=== PATIENT | male | born 1960 | race Caucasian/White ===

== ENCOUNTER 2020-03-19 07:39 | Outpatient (CLI) | payer OTHER ==
[2020-03-19 11:41] LABS: Bacteria/HPF None Seen HPF (None Seen); Bilirubin Negative (Negative); Blood, Urine Trace (Negative); Clarity Clear (Clear); Glucose, Urine (Dipstick) Normal (Negative); Leukocyte Negative Leu/uL (Negative); Nitrite Negative (Negative); Protein, Urine (Dipstick) Negative (Neg-Trace); RBC/HPF 0-3 HPF (0-3); Squamous Epithelial 0-3 HPF (0-3); Urobilinogen Normal mg/dL (Less than 2); WBC/HPF 0-3 HPF (0-3)
[2020-03-19 11:44] LABS: #Basophils 0.1 thou/uL (0.0-0.2); #Eosinphils 0.1 thou/uL (0.0-0.7); #Lymphocytes 2.2 thou/uL (1.20-3.40); #Monocytes 0.8 thou/uL (0.11-0.59); #Neutrophils 7.5 thou/uL (1.40-6.50); %Basophils 0.9 % (0.0-1.0); %Eosinophils 0.9 % (0.0-10.0); %Lymphocytes 20.4 % (21.0-51.0); %Monocytes 7.2 % (0.0-10.0); %Neutrophils 70.6 % (42.0-75.0); Hemoglobin 17.4 g/dL (14.0-18.0); Mean Corpuscular HGB CONC 33.2 g/dL (32.0-36.0); Mean Corpuscular Hemoglobin 29.7 pg (27.0-31.0); Mean Corpuscular Volume 89.4 fL (78.0-98.0); Platelet Count 224 thou/uL (130-400); RBC Distribution Width 12.6 % (11.5-14.5); Red Blood Cell (RBC) Count 5.87 mill/uL (4.70-6.10); White Blood Cell (WBC) Count 10.7 thou/uL (4.8-10.8)
[2020-03-19 18:47] LABS: SARS-CoV-2 MS2 Positive; SARS-CoV-2 N Gene Negative; SARS-CoV-2 S Gene Negative; SARS-CoV-2 orf1ab Negative
== END 2020-03-19 07:40 | disposition home or self-care (01) ==
LOC: LABBT 07:39
PROVIDERS: ATTEND Orthopaedic Surgery
DX: Z01.812 Encounter for preprocedural laboratory examination (principal); Z11.59 Encounter for screening for other viral diseases; G56.01 Carpal tunnel syndrome, right upper limb
CPT/HCPCS: 81001; 85025; 87635; U0003

== ENCOUNTER 2020-03-22 07:06 | Day surgery (SDC) | payer OTHER ==
[2020-03-19 10:52] VITALS: BMI 32.3
[2020-03-22] MEDS ORDERED: Clindamycin/D5W 600 mg/50 ml Premix Bag ONE (07:27)
[2020-03-22] MEDS ORDERED: Ketamine 50 MG/ML (10ML VIAL) ONE (10:15)
[2020-03-22] MEDS ORDERED: Midazolam HCl 2 mg/2 ml Vial ONE (10:15)
[2020-03-22] MEDS ORDERED: Propofol 500 MG/50 ML VIAL ONE (10:15)
[2020-03-22] MEDS ORDERED: Fentanyl 100 MCG/2 ML VIAL ONE (10:15)
[2020-03-22] MEDS ORDERED: Lidocaine 1% w/Epinephrine 1:100K 20 ML VIAL ONE (10:20)
--- NOTE | 2020-03-22 12:27 | OP ---
DATE OF PROCEDURE: 03/22/2020 PREOPERATIVE DIAGNOSIS: Right carpal tunnel syndrome. POSTOPERATIVE DIAGNOSIS: Right carpal tunnel syndrome. PROCEDURE PERFORMED: Right open carpal tunnel release. CASE SPECIALIST: None. ANESTHESIA: Dr. Way. The patient received TIVA 6 mL 1% with epi. ESTIMATED BLOOD LOSS: Less than 10 mL. TOURNIQUET TIME: 7 minutes at 250 mmHg. ANTIBIOTICS: Clindamycin 600. COMPLICATIONS: None. 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 The patient has history of nerve conduction studies being positive, decreased sensation in his median distribution, got pain at night, failed conservative measures and elected for release. I discussed the risks and benefits of release including pain, scar, bleeding, infection, damage to vital structures including nerve, continued pain, need for further surgeries, anesthetic complications, loss of life or limb. The patient understood the risks and benefits and elected to proceed. DESCRIPTION OF PROCEDURE: Time-out was performed designating the patient's right upper extremity as the operative site based on site, consents, and marking. After time-out, the patient's right upper extremity was prepped and draped in a sterile fashion. Tourniquet was brought up and was left for 7 minutes. Incision was made at the skin, proximal to Flowers's cardinal line, down through skin, dissecting down bluntly through fat, came down to the palmar fascia, which was transected. Hemostat was placed to ensure it was protected. Posteriorly, we moved to the patient's palmaris brevis and then transverse carpal ligament. We ensured it was completely released proximally and distally, protected the nerve using the hemostats and bluntly in the plane of dissection. We washed, let the tourniquet down after 7 minutes, controlled bleeding, closed with 4-0 nylon horizontal mattress sutures. Soft tissue dressing applied. The patient will follow up with me in 10 to 12 days for suture removal. Job ID: [id number] MTDD
--- NOTE | 2020-03-22 14:19 | HP ---
CHIEF COMPLAINT: Right hand pain. 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 Pain can be severe at times. Nerve conduction studies positive. PAST MEDICAL HISTORY: Gout. PAST SURGICAL HISTORY: ACL reconstruction. ALLERGIES: PENICILLIN ALLERGY. MEDICATIONS: Allopurinol. SOCIAL HISTORY: He is a nonsmoker. Occasionally, he drinks. PHYSICAL EXAMINATION: GENERAL: Alert and oriented male, in no acute distress, resting comfortably in bed. EXTREMITIES: Right hand, the patient has no skin changes, no atrophy no significant wasting, normal strength, no instability, decreased sensation, positive Phalen's , history of nerve conduction study positive, right carpal tunnel syndrome. IMPRESSION: Right carpal tunnel syndrome. ASSESSMENT AND PLAN: The patient will be taken for an open carpal tunnel release. I discussed with him the risks and benefits of surgery, pain, scar, bleeding, damage to nerve, damage to vital structures, decreased range of motion and strength, continued pain despite surgical intervention, loss of life or limb. The patient understands the risks and benefits and elected to proceed. He will be taken back to the operating suite. Job ID: [id number] MTDD
== END 2020-03-22 12:18 ==
LOC: SDC 07:06 → EDSEX 10:30 → SDC 12:18
PROVIDERS: ATTEND Orthopaedic Surgery
PROC: 01N50ZZ Release Median Nerve, Open Approach (ICD-10-PCS; principal; 2020-03-22)
DX: G56.01 Carpal tunnel syndrome, right upper limb (principal); M10.9 Gout, unspecified; Z79.899 Other long term (current) drug therapy; Z88.0 Allergy status to penicillin; Z98.890 Other specified postprocedural states
CPT/HCPCS: J2250; J2704; J3010; J3490